=== PATIENT | male | born 1965 | race Caucasian/White ===

== ENCOUNTER → 2018-11-14 | Outpatient (CLI) | payer SELFPAY ==
--- NOTE | 2018-11-14 14:16 | Diagnostic Imaging Report ---
Indication: Right foot ulcer. Grayscale, color-flow and duplex Doppler evaluation of the right lower extremity arterial system was performed. There are triphasic waveforms in the right common femoral, superficial femoral and popliteal arteries, which demonstrate normal velocities. Generalized atherosclerotic changes are noted. There are monophasic waveforms at the ankle, in the posterior tibial artery as well as dorsalis pedis artery which also show normal velocities. The anterior tibial artery is also monophasic. No occlusion is seen. Impression: Small vessel disease demonstrating monophasic waveforms. However, no high-grade stenosis or occlusion is detected. Dictated by: Dictated on workstation # [id number]
== END ==
LOC: RAD 10:26
PROVIDERS: ATTEND Physician Assistant
DX: E11.65 Type 2 diabetes mellitus with hyperglycemia (principal); E11.621 Type 2 diabetes mellitus with foot ulcer; L97.519 Non-pressure chronic ulcer of other part of right foot with unspecified severity; I73.9 Peripheral vascular disease, unspecified
CPT/HCPCS: 93926